=== PATIENT | male | born 2000 | race African-American/Black ===

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

== ENCOUNTER 2020-11-05 14:24 | Emergency (ER) | payer BC, MEDICAID ==
[~2020-11-05] VITALS: Ht 185.4 cm; Wt 87.8 kg
[2020-11-05] MEDS ORDERED: PROMETHAZINE 25 MG/ML, 1ML IM ONE (15:00)
[2020-11-05] MEDS ORDERED: SODIUM CHLORIDE FLUSH 10ML SYR IVF ONE (15:00)
[2020-11-05] MEDS ORDERED: FAMOTIDINE 20 MG/2 ML IV ONE (15:00)
[2020-11-05] MEDS ORDERED: SODIUM CHLORIDE 0.9% 1,000ML IVBOLUS ONE (15:00)
--- NOTE | 2020-11-05 15:04 | NUR ---
CC OF N/V X 2 DAYS. PT THINKS HE MAY HAVE GOTTEN FOOD POISONING. DENIES PAIN AND DIARRHEA.
--- NOTE | 2020-11-05 15:05 | NUR ---
[facility] [place] TOAN [phone]
[2020-11-05] MEDS ORDERED: PROMETHAZINE 25 MG/ML, 1ML ONE (15:06)
[2020-11-05] MEDS ORDERED: FAMOTIDINE 20 MG/2 ML ONE (15:08)
[2020-11-05 15:17] LABS: BASOPHILS % (AUTO) 0 % (0-1); EOSINOPHILS % (AUTO) 0 % (1-7); LYMPHOCYTES % (AUTO) 20 % (22-44); MEAN CORPUSCULAR HEMOGLOBIN 27.8 pg (27.5-34.5); MEAN CORPUSCULAR HGB CONC 33.2 g/dL (33.2-36.2); MEAN PLATELET VOLUME 9.5 fL (7.4-10.4); MONOCYTES % (AUTO) 11 % (2-9); NEUTROPHILS % (AUTO) 69 % (42-75); PLATELET COUNT 191 x10^3/uL (130-400); RED CELL DISTRIBUTION WIDTH 12.3 % (9.4-14.8)
[2020-11-05 15:20] LABS: MD NO
[2020-11-05 15:22] LABS: ALANINE AMINOTRANSFERASE 240 U/L (12-78); ALBUMIN 3.8 g/dL (3.4-5.0); ANION GAP 6 mmol/L (5-15); CALCIUM 9.9 mg/dL (8.5-10.1); CHLORIDE 109 mmol/L (98-107)
[2020-11-05 15:25] LABS: ALKALINE PHOSPHATASE 66 U/L (45-117); BILIRUBIN,TOTAL 2.7 mg/dL (0.2-1.0); CREATININE 0.99 mg/dL (0.7-1.3); TOTAL PROTEIN 7.2 g/dL (6.4-8.2)
[2020-11-05] MEDS ORDERED: LACTATED RINGERS 1,000 ML IVBOLUS ONE (15:30)
[2020-11-05 15:33] LABS: MICROSCOPIC NOT IND
--- NOTE | 2020-11-05 16:54 | NUR ---
PT ABLE TO DRINK CUP OF BROTH, NO VOMITING OR NAUSEA
[2020-11-05 17:01] VITALS: BP 127/73
== END 2020-11-05 17:06 | disposition home or self-care (01) ==
LOC: ED 15:54
DX: R11.2 Nausea with vomiting, unspecified (principal); R94.8 Abnormal results of function studies of other organs and systems; I51.7 Cardiomegaly; R00.0 Tachycardia, unspecified; R94.31 Abnormal electrocardiogram [ECG] [EKG]; J45.909 Unspecified asthma, uncomplicated
CPT/HCPCS: 36415; 76700; 80053; 81003; 82390; 82728; 83516; 83540; 83550; 83690; 84466; 85025; 86803; 93005; 96361; 96372; 96374; 99285; J2550; J7030; J7120